=== PATIENT | male | born 1990 | race Caucasian/White ===

== ENCOUNTER 2019-03-18 11:48 | Outpatient (CLI) | payer BC ==
--- NOTE | 2019-03-18 12:53 | RAD ---
Radiograph paranasal sinuses 3 views: DATE: 03/18/2019 HISTORY: An 28-year-old male with cough FINDINGS: There are no air-fluid levels in the paranasal sinuses. Frontal sinuses appear to have patchy increas ed attenuation. Questionable mild to moderate mucosal thickening at the lateral aspect of left maxillary sinus. Sphenoid sinus, right maxillary sinus, and bilateral ethmoid air cells, appear to be grossly clear. IMPRESSION: 1. No air-fluid levels in the paranasal sinuses. 2. Questionable mucosal thickening in frontal and left maxillary sinuses.
== END 2019-03-18 11:49 | disposition home or self-care (01) ==
LOC: BICRAD 11:48
PROVIDERS: ATTEND Family Medicine
DX: R05 Cough (principal)
CPT/HCPCS: 70220